=== PATIENT | male | born 1965 | race Caucasian/White ===

== ENCOUNTER 2022-05-17 09:19 | Emergency (ER) | payer BC ==
[2022-05-17] MEDS ORDERED: HYDROmorphone 1 MG/ML Syringe IM ONE (11:25)
[2022-05-17] MEDS ORDERED: Acetaminophen/oxyCODONE 325-5 MG Tab PO ONE (12:09)
[2022-05-17] MEDS ORDERED: Morphine 4 MG/ML Syringe IM ONE (12:38)
== END 2022-05-17 14:40 | disposition home or self-care (01) ==
LOC: JD.ED 09:19
DX: G89.18 Other acute postprocedural pain (principal); F17.210 Nicotine dependence, cigarettes, uncomplicated; Z98.890 Other specified postprocedural states
CPT/HCPCS: 74019; 96372; 99283; A9270; J1170; J2270; 99284

== ENCOUNTER 2022-06-26 20:17 | Emergency (ER) | payer BC ==
[2022-06-26] MEDS ORDERED: Sodium Chloride 0.9% 10 ML Syringe FLUSH PRN (20:52)
[2022-06-26] MEDS ORDERED: methylPREDNISolone Sodium Succinate 125 MG/2 ML SDV IVPUSH ONE (20:54)
[2022-06-26] MEDS ORDERED: Albuterol 0.083% 2.5 MG/3 ML Neb Soln NEB ONE (20:54)
[2022-06-26] MEDS ORDERED: Magnesium Oxide 400 MG Tab PO ONE (23:00)
[2022-06-26] MEDS ORDERED: Iopamidol 755 Mg/ML 100 ML Bottle IVPUSH ONE ×2 (23:30→23:31)
[2022-06-26] MEDS ORDERED: Sodium Chloride 0.9% 100 ML IV SCH ×2 (23:30→23:45)
[2022-06-26] MEDS ORDERED: cefTRIAXone 1 GM in Sodium Chloride 0.9% 100 ML IV ONE (23:56)
[2022-06-27] MEDS ORDERED: Acetaminophen 325 MG Tab PO ONE (00:04)
[2022-06-27] MEDS ORDERED: Morphine 4 MG/ML Syringe IVPUSH ONE (00:30)
[2022-06-27] MEDS ORDERED: Ketorolac 15 MG/ML SDV IVPUSH ONE ×2 (01:44→04:36)
[2022-06-27] MEDS ORDERED: LORazepam 2 MG/ML SDV IVPUSH ONE (04:36)
== END 2022-06-27 07:40 ==
LOC: JD.ED 20:17
DX: J85.1 Abscess of lung with pneumonia (principal); J44.9 Chronic obstructive pulmonary disease, unspecified; I10 Essential (primary) hypertension; F17.210 Nicotine dependence, cigarettes, uncomplicated; Z79.899 Other long term (current) drug therapy; Z86.16 Personal history of COVID-19; Z20.822 Contact with and (suspected) exposure to COVID-19
CPT/HCPCS: 36415; 36600; 71045; 71045-26; 71275; 71275-26; 80053; 82803; 83605; 83735; 83880; 84484; 85007; 85027; 85379; 85610; 85730; 86140; 87040; 93005; 94640; 96365; 96375; 96376; 99285-25; A9270-GY; J0696; J1885; J2060; J2270; J2930; J3490; Q9967; U0002